=== PATIENT | male | born 1945 | race Caucasian/White ===

== ENCOUNTER 2019-11-01 09:29 | Observation (INO) | payer OTHER, MEDICARE ==
--- NOTE | 2019-11-01 10:27 | RADIOLOGY REPORT (SQ) ---
EXAM DESCRIPTION: CHEST SINGLE VIEW COMPLETED DATE/TIME: 11/01/2019 10:13 am REASON FOR STUDY: SOB COMPARISON: None. EXAM PARAMETERS: NUMBER OF VIEWS: One view. TECHNIQUE: Single frontal radiographic view of the chest acquired. RADIATION DOSE: NA LIMITATIONS: None. FINDINGS: LUNGS AND PLEURA: No opacities, masses or pneumothorax. No pleural effusion. MEDIASTINUM AND HILAR STRUCTURES: No masses. Contour normal. HEART AND VASCULAR STRUCTURES: Heart upper limits of normal in size. Normal vasculature. BONES: No acute findings. HARDWARE: Sternotomy wires and coronary markers. OTHER: No other significant finding. IMPRESSION: NO ACUTE RADIOGRAPHIC FINDING IN THE CHEST. TECHNICAL DOCUMENTATION: JOB ID: [id number] [employer]- All Rights Reserved Reading location - IP/workstation name: [email or web address]
[2019-11-01 10:48] LABS: ABSOLUTE EOSINOPHILS # (AUTO) 0.3 10^3/uL (0.0-0.6); ABSOLUTE LYMPHOCYTES (AUTO) 1.6 10^3/uL (0.5-4.7); ABSOLUTE MONOCYTES (AUTO) 0.4 10^3/uL (0.1-1.4); ABSOLUTE NEUT (AUTO) 4.2 10^3/uL (1.7-8.2); BASOPHILS % (AUTO) 0.4 % (0-2); EOSINOPHILS % (AUTO) 3.9 % (0-6); HEMATOCRIT 44.4 % (37.9-51.0); HEMOGLOBIN 15.3 g/dL (13.5-17.0); LYMPHOCYTES % (AUTO) 24.8 % (13-45); MEAN CORPUSCULAR HGB CONC 34.4 g/dL (32.0-36.0); MEAN CORPUSCULAR VOLUME 84 fl (80-97); MONOCYTES % (AUTO) 6.1 % (3-13); PLATELET COUNT 145 10^3/uL (150-450); RED BLOOD COUNT 5.27 10^6/uL (4.35-5.55); RED CELL DISTRIBUTION WIDTH 14.4 % (11.5-14.0); SEGMENTED NEUTROPHILS % (AUTO) 64.8 % (42-78); TOTAL CELLS COUNTED % (AUTO) 100 %; WHITE BLOOD COUNT 6.5 10^3/uL (4.0-10.5)
[2019-11-01 11:10] LABS: ALBUMIN 4.3 g/dL (3.5-5.0); ALKALINE PHOSPHATASE 64 U/L (38-126); ANION GAP 8 (5-19); ASPARTATE AMINO TRANSFERASE 25 U/L (17-59); BILIRUBIN,DIRECT 0.2 mg/dL (0.0-0.4); BILIRUBIN,TOTAL 0.8 mg/dL (0.2-1.3); BLOOD UREA NITROGEN 17 mg/dL (7-20); CALCIUM 9.2 mg/dL (8.4-10.2); CARBON DIOXIDE 30 mmol/L (22-30); CHLORIDE 104 mmol/L (98-107); GLUCOSE 148 mg/dL (75-110); POTASSIUM 4.9 mmol/L (3.6-5.0); TOTAL PROTEIN 7.8 g/dL (6.3-8.2)
[2019-11-01 11:13] LABS: APPEARANCE,URINE CLEAR; BILIRUBIN,URINE NEGATIVE (NEGATIVE); COLOR,URINE STRAW; GLUCOSE, URINE NEGATIVE (NEGATIVE); KETONES,URINE NEGATIVE (NEGATIVE); LEUKOCYTE ESTERASE,URINE NEGATIVE (NEGATIVE); NITRITE,URINE NEGATIVE (NEGATIVE); PROTEIN,URINE 30 mg/dL (NEGATIVE); URINE SPECIFIC GRAVITY 1.008; UROBILINOGEN,URINE NEGATIVE mg/dL (<2.0)
[2019-11-01] MEDS ORDERED: HYDRALAZINE HCL INJ/PF 20 MG/1 ML SDV IV ONE (12:48)
--- NOTE | 2019-11-01 12:49 | ER Document Report ---
ED General - General Chief Complaint: Shortness Of Breath Stated Complaint: SHORTNESS OF BREATH Time Seen by Provider: 11/01/19 12:35 Primary Care Provider: SAHARA CORDOVA MD [NO LOCAL MD] - 11/09/19 9:30 am (rubi/ Cassia CLANCY on 11/09/18 at 2 pm [address] [place] [address] ) [facility] [Primary Care Provider] - (Follow up within 1 week.) TRAVEL OUTSIDE OF THE [place] IN LAST 30 DAYS: No - HPI Notes: [place] for concern of hypertension and he has been having intermittent chest discomfort and shortness of breath with exertion. He had ope n heart surgery in January of this year. It was uneventful went very well per the patient. He is asymptomatic in the emergency department denies any chest pain or shortness of breath at this time. His says that last night he was having intermittent chest discomfort and having shortness of breath it was similar to his symptoms prior to having open heart surgery. No recent cough congestion fevers or illnesses no nausea vomiting or diarrhea - Related Data Allergies/Adverse Reactions: No Known Allergies Allergy (Unverified 11/01/19 13:05) Past Medical History - Social History Smoking Status: Never Smoker Chew tobacco use (# tins/day): No Frequency of alcohol use: None Drug Abuse: None Family History: Reviewed & Not Pertinent Patient has suicidal ideation: No Patient has homicidal ideation: No Review of Systems - Review of Systems Constitutional: No symptoms reported EENT: No symptoms reported Cardiovascular: See HPI Respiratory: See HPI Gastrointestinal: No symptoms reported Genitourinary: No symptoms reported Male Genitourinary: No symptoms reported Musculoskeletal: No symptoms reported Skin: No symptoms reported Hematologic/Lymphatic: No symptoms reported Neurological/Psychological: No symptoms reported Physical Exam - Vital signs Vitals: Pulse Ox 96 11/01/19 09:34 - General General appearance: Appears well, Alert - HEENT Head: Normocephalic, Atraumatic - Respiratory Respiratory status: No respiratory distress Chest status: Nontender Breath sounds: Normal Chest palpation: Normal - Cardiovascular Rhythm: Regular Heart sounds: Normal auscultation Murmur: No - Abdominal Inspection: Normal Distension: No distension Bowel sounds: Normal Tenderness: Nontender - Neurological Neuro grossly intact: Yes Cognition: Normal Orientation: AAOx4 - Psychological Associated symptoms: Normal affect Course - Re-evaluation Re-evalutation: 11/01/19 13:47 Patient be admitted for chest pain shortness of breath with recent CABG in March of this year. - Vital Signs Vital signs: Temp Pulse Resp BP Pulse Ox 97.6 F 22 H 181/97 H 94 11/01/19 10:02 11/01/19 10:02 11/01/19 10:02 11/01/19 10:02 - Laboratory Result Diagrams: 11/01/19 10:37 11/01/19 10:37 Laboratory results interpreted by me: 11/01/19 11/01/19 11/01/19 10:37 10:37 10:50 RDW 14.4 H Plt Count 145 L Glucose 148 H Urine Protein 30 H - EKG Interpretation by Me Additional EKG results interpreted by me: 11/01/19 13:46 Time 1003 Rate of 67, normal sinus rhythm, normal axis and intervals, nonspecific ST-T wave abnormalities no concerning ST depressions or elevations Discharge - Discharge Clinical Impression: Dyspnea on exertion Chest pain Qualifiers: Chest pain type: unspecified Qualified Code(s): R07.9 - Chest pain, unspecified Hypertension Qualifiers: Hypertension type: unspecified Qualified Code(s): I10 - Essential (primary) hypertension Condition: Stable Disposition: ADMITTED OBSERVATION Admitting Provider: Maryse (Hospitalist) Unit Admitted: Telemetry Prescriptions: Buspirone HCl [Buspar 5 mg Tablet] 1 tab PO BID #60 tab Hydroxyzine Pamoate [Vistaril 25 mg Capsule] 25 mg PO BIDP PRN #20 capsule PRN Reason: stress/anxiety Referrals: SAHARA CORDOVA MD [NO LOCAL MD] - 11/09/19 9:30 am (franko CLANCY on 11/09/18 at 2 pm [address] [place] [address] ) [facility] [Primary Care Provider] - (Follow up within 1 week.)
--- NOTE | 2019-11-01 13:26 | EKG REPORT ---
SEVERITY:- BORDERLINE ECG - SINUS RHYTHM BORDERLINE R WAVE PROGRESSION, ANTERIOR LEADS BORDERLINE T ABNORMALITIES, ANT-LAT LEADS : Confirmed by: Sunil Comer MD 01-Nov-2019 13:25:22
[2019-11-01] MEDS ORDERED: NITROGLYCERIN 2% OINTMENT 1 GM PACKET TP ONE (13:48)
[2019-11-01] MEDS ORDERED: METOPROLOL SUCCINATE 25 MG TAB.SR.24H PO ONE (16:00)
[2019-11-01] MEDS ORDERED: LISINOPRIL 10 MG TABLET PO ONE (16:00)
[2019-11-01] MEDS ORDERED: ACETAMINOPHEN 325 MG TABLET PO PRN (16:58)
[2019-11-01] MEDS ORDERED: ONDANSETRON HCL INJ/PF 4 MG/2 ML SDV IV PRN (16:58)
[2019-11-01] MEDS ORDERED: MAG HYDROX/AL HYDROX/SIMETH SUSP 30 ML UDCUP PO PRN (16:58)
[2019-11-01] MEDS ORDERED: ALBUTEROL SULFATE 0.083% NEB 2.5 MG/3 ML AMPUL NEB PRN (16:58)
[2019-11-01] MEDS ORDERED: HYDRALAZINE HCL INJ/PF 20 MG/1 ML SDV IV PRN ×2 (17:00→20:20)
[2019-11-01] MEDS ORDERED: DEXTROSE 40% GEL 15 GM TUBE PO PRN ×2 (17:37)
[2019-11-01] MEDS ORDERED: DEXTROSE 50%-WATER 25 GM/50 ML DISP.SYRIN IV PRN ×2 (17:37)
[2019-11-01] MEDS ORDERED: GLUCAGON,HUMAN RECOMB 1 MG INJ IM PRN (17:37)
--- NOTE | 2019-11-01 17:48 | PDOC H&P ---
History of Present Illness Admission Date/PCP: 11/01/19 17:30 [place] [facility] Patient complains of: uncontrolled blood pressure, chest pain History of Present Illness: PARIS JARAMILLO is a 74 year old male with a past medical history significant for insulin-dependent diabetes mellitus, hypertension, hyperlipidemia, hypothyroidism, and recent triple bypass by Dr. Leon ([facility]) in March 2019. Patient was sent to the ED from the [place] clinic today for hypertensive urgency with associated chest discomfort. Patient reports intermittent chest tightness over the last 3 days. He does describe increased social stressors and believes that his chest discomfort has been related to stress/anxiety. Today he reports that he left the home early and forgot to take his blood pressure medications which resulted in his high blood pressure. 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 His second troponin did come back negative, however, despite resuming his home medication regiment and providing IV hydralazine, he continued to have blood pressures 194/107 and so will be admitted for hypertensive urgency. Further evaluation in the emergency department revealed normal CBC, unremarkable chemistry, urinalysis, and chest x-ray. EKG demonstrates sinus rhythm with borderline T wave abnormalities to the anterior and lateral leads but no acute findings. Past Medical History Cardiac Medical History: Reports: Coronary Artery Disease, Hyperlipidema, Hypertension Denies: Atrial Fibrillation, Congestive Heart Failure Pulmonary Medical History: Reports: None EENT Medical History: Reports: None Neurological Medical History: Reports: None Endocrine Medical History: Reports: Diabetes Mellitus Type 2 - IDDM, Hypothyroidism Renal/ Medical History: Reports: None Malignancy Medical History: Reports: None GI Medical History: Reports: None Musculoskeltal Medical History: Reports: None Skin Medical History: Reports: None Psychiatric Medical History: Reports: None Traumatic Medical History: Reports: None Hematology: Reports: None Infectious Medical History: Reports: None Past Surgical History Past Surgical History: Reports: Coronary Artery Bypass Graft Social History Information Source: Patient Lives with: Family Smoking Status: Never Smoker Electronic Cigarette use?: No Frequency of Alcohol Use: None Hx Recreational Drug Use: No Hx Prescription Drug Abuse: No - Advance Directive Resuscitation Status: Do Not Resuscitate Family History Family History: Reviewed & Not Pertinent Parental Family History Reviewed: Yes Children Family History Reviewed: Yes Sibling(s) Family History Reviewed.: Yes Medication/Allergy Home Medications: Buspirone HCl [Buspar 5 mg Tablet] 1 tab PO BID #60 tab 11/01/19 Hydroxyzine Pamoate [Vistaril 25 mg Capsule] 25 mg PO BIDP PRN #20 capsule 11/01/19 Allergies/Adverse Reactions: No Known Allergies Allergy (Unverified 11/01/19 13:05) Review of Systems Constitutional: ABSENT: chills, fever(s), headache(s), weight gain, weight loss Eyes: ABSENT: visual disturbances Ears: ABSENT: hearing changes Cardiovascular: PRESENT: as per HPI, chest pain. ABSENT: dyspnea on exertion, edema, orthropnea, palpitations Respiratory: ABSENT: cough, hemoptysis Gastrointestinal: ABSENT: abdominal pain, constipation, diarrhea, hematemesis, hematochezia, nausea, vomiting Genitourinary: ABSENT: dysuria, hematuria Musculoskeletal: ABSENT: joint swelling Integumentary: ABSENT: rash, wounds Neurological: ABSENT: abnormal gait, abnormal speech, confusion, dizziness, focal weakness, syncope Psychiatric: PRESENT: as per HPI, anxiety. ABSENT: depression, homidical ideation, suicidal ideation Endocrine: ABSENT: cold intolerance, heat intolerance, polydipsia, polyuria Hematologic/Lymphatic: ABSENT: easy bleeding, easy bruising Physical Exam Vital Signs: Temp Pulse Resp BP Pulse Ox 97.6 F 27 H 194/107 H 95 11/01/19 10:02 11/01/19 16:38 11/01/19 16:38 11/01/19 16:38 Intake & Output 10/31/19 11/01/19 11/02/19 06:59 06:59 06:59 Weight 112.491 kg General appearance: PRESENT: no acute distress, cooperative, well-developed, well-nourished Head exam: PRESENT: atraumatic, normocephalic Eye exam: PRESENT: conjunctiva pink, EOMI, PERRLA. ABSENT: scleral icterus Ear exam: PRESENT: normal external ear exam Mouth exam: PRESENT: moist, tongue midline Neck exam: ABSENT: carotid bruit, JVD, lymphadenopathy, thyromegaly Respiratory exam: PRESENT: clear to auscultation rios, symmetrical, unlabored. ABSENT: rales, rhonchi, wheezes Cardiovascular exam: PRESENT: RRR, +S1, +S2. ABSENT: diastolic murmur, rubs, systolic murmur Pulses: PRESENT: normal dorsalis pedis pul Vascular exam: PRESENT: normal capillary refill GI/Abdominal exam: PRESENT: normal bowel sounds, soft. ABSENT: distended, guarding, mass, organolmegaly, rebound, tenderness Rectal exam: PRESENT: deferred Extremities exam: PRESENT: full ROM. ABSENT: calf tenderness, clubbing, pedal edema Musculoskeletal exam: PRESENT: ambulatory Neurological exam: PRESENT: alert, awake, oriented to person, oriented to place, oriented to time, oriented to situation, CN II-XII grossly intact. ABSENT: motor sensory deficit Psychiatric exam: PRESENT: appropriate affect, normal mood. ABSENT: homicidal ideation, suicidal ideation Skin exam: PRESENT: dry, intact, warm. ABSENT: cyanosis, rash Results Laboratory Results: 11/01/19 10:37 11/01/19 10:37 11/01/19 11/01/19 11/01/19 10:37 10:37 10:37 WBC 6.5 RBC 5.27 Hgb 15.3 Hct 44.4 MCV 84 MCH 29.0 MCHC 34.4 RDW 14.4 H Plt Count 145 L Seg Neutrophils % 64.8 Sodium 142.1 Potassium 4.9 Chloride 104 Carbon Dioxide 30 Anion Gap 8 BUN 17 Creatinine 0.75 Est GFR ( Amer) > 60 Glucose 148 H Calcium 9.2 Magnesium 2.1 Total Bilirubin 0.8 AST 25 Alkaline Phosphatase 64 Total Protein 7.8 Albumin 4.3 Urine Color Urine Appearance Urine pH Ur Specific [place] Urine Protein Urine Glucose (UA) Urine Ketones Urine Blood Urine Nitrite Ur Leukocyte Esterase Urine WBC (Auto) Urine RBC (Auto) 11/01/19 10:50 WBC RBC Hgb Hct MCV MCH MCHC RDW Plt Count Seg Neutrophils % Sodium Potassium Chloride Carbon Dioxide Anion Gap BUN Creatinine Est GFR ( Amer) Glucose Calcium Magnesium Total Bilirubin AST Alkaline Phosphatase Total Protein Albumin Urine Color STRAW Urine Appearance CLEAR Urine pH 7.0 Ur Specific [place] 1.008 Urine Protein 30 H Urine Glucose (UA) NEGATIVE Urine Ketones NEGATIVE Urine Blood NEGATIVE Urine Nitrite NEGATIVE Ur Leukocyte Esterase NEGATIVE Urine WBC (Auto) 0 Urine RBC (Auto) 0 11/01/19 11/01/19 10:37 15:45 Troponin I < 0.012 0.016 Impressions: Chest X-Ray 11/01/19 09:45 IMPRESSION: NO ACUTE RADIOGRAPHIC FINDING IN THE CHEST. Assessment and Plan - Diagnosis (1) Chest pain Qualifiers: Chest pain type: unspecified Qualified Code(s): R07.9 - Chest pain, unspecified Is this a current diagnosis for this admission?: Yes Plan: Unclear etiology. Patient reports that his pain seems to be associated with increased life stressors. He reports that his blood pressure was elevated today because he take his medications prior to leaving the house. However, he does have multiple risk factors including age, weight, hypertension, hyperlipidemia, recent CABG. The EKG demonstrated nonspecific T wave changes to the anterior and lateral leads but no acute findings. Troponin 0.012-> 0.016; will continue to trend Patient is admitted to the medical floor on continuous cardiac telemetry. Continue to trend troponins. Daily aspirin therapy. Resume home dose statin once reconciled. Cardiology consultation. Achieve adequate blood pressure control. (2) Hypertensive urgency Is this a current diagnosis for this admission?: Yes Plan: Patient is placed on cardiac diet. Resume home medication regiment once reconciled; did receive lisinopril 20 mg and metoprolol XL 25 mg today while still in the ED. IV hydralazine as needed for blood pressure control. (3) Hyperlipidemia Is this a current diagnosis for this admission?: Yes Plan: Cardiac diet. Continue home dose statin once medications have been reconciled. (4) Diabetes Qualifiers: Diabetes mellitus type: type 2 Diabetes mellitus skilled nursing insulin use: with skilled nursing use Is this a current diagnosis for this admission?: Yes Plan: We will check A1c with a.m. lab work. Hold oral diabetic medications. Consistent carb diet. Accu-Chek before meals at bedtime with Humalog for sliding scale coverage. Hypoglycemia protocol. - Time Time Spent with patient: 35 or more minutes Medications reviewed and adjusted accordingly: Yes Anticipated discharge: Home Within: within 24 hours
[2019-11-01] MEDS ORDERED: METOPROLOL TARTRATE PF/INJ 5 MG/5 ML SDV IV PRN (20:18)
[2019-11-01] MEDS: NITROGLYCERIN 2% OINTMENT 1 GM PACKET TP SCH (20:46)
[2019-11-01] MEDS ORDERED: METOPROLOL SUCCINATE 50 MG TAB.SR.24H PO SCH (22:00)
[2019-11-02] MEDS: FAMOTIDINE 20 MG TABLET PO SCH ×2 (00:28→09:27)
[2019-11-02] MEDS: METOPROLOL SUCCINATE 50 MG TAB.SR.24H PO SCH ×2 (00:28→09:25)
[2019-11-02] MEDS: HEPARIN SOD (PORCINE) 5,000 UNIT/ML 1 ML VIAL SUBCUT SCH ×3 (00:29→14:07)
[2019-11-02] MEDS: INSULIN LISPRO 100 UNIT/ML 3 ML VIAL SUBCUT SCH ×3 (00:30→12:36)
[2019-11-02] MEDS: NITROGLYCERIN 2% OINTMENT 1 GM PACKET TP SCH ×3 (00:31→12:43)
[2019-11-02 06:33] LABS: HEMATOCRIT 44.2 % (37.9-51.0); HEMOGLOBIN 15.2 g/dL (13.5-17.0); MEAN CORPUSCULAR HEMOGLOBIN 28.7 pg (27.0-33.4); MEAN CORPUSCULAR HGB CONC 34.3 g/dL (32.0-36.0); MEAN CORPUSCULAR VOLUME 84 fl (80-97); PLATELET COUNT 160 10^3/uL (150-450); RED BLOOD COUNT 5.29 10^6/uL (4.35-5.55); RED CELL DISTRIBUTION WIDTH 14.7 % (11.5-14.0); WHITE BLOOD COUNT 7.8 10^3/uL (4.0-10.5)
[2019-11-02 06:58] LABS: ANION GAP 10 (5-19); BLOOD UREA NITROGEN 17 mg/dL (7-20); CALCIUM 9.3 mg/dL (8.4-10.2); CARBON DIOXIDE 25 mmol/L (22-30); CHLORIDE 105 mmol/L (98-107); GLUCOSE 156 mg/dL (75-110); POTASSIUM 4.2 mmol/L (3.6-5.0)
[2019-11-02] MEDS ORDERED: LISINOPRIL 10 MG TABLET PO SCH (10:00)
[2019-11-02] MEDS ORDERED: DOCUSATE SODIUM 100 MG CAPSULE PO SCH (10:00)
[2019-11-02] MEDS ORDERED: ASPIRIN 81 MG TABLET, CHEWABLE PO SCH (10:00)
[2019-11-02] MEDS ORDERED: (PENDING PHARMACY ID) (Lisinopril [Prinivil] 20 MG) PO SCH (10:00)
[2019-11-02] MEDS ORDERED: LISINOPRIL 10 MG TABLET PO ONE (11:00)
--- NOTE | 2019-11-02 13:58 | PDOC CONSULTATION ---
Consultation Consult Date: 11/02/19 Provider Consulted: LONG FERNANDES History of Present Illness Admission Date/PCP: 11/01/19 17:30 [place] [facility] Patient complains of: Elevated blood pressure History of Present Illness: PARIS JARAMILLO is a 74 year old male With the following active problems 1. Coronary disease 2. Systemic hypertension 3. Coronary artery bypass graft March 2019 Patient initially presented to the [facility] with concerns that his heart rhythm was abnormal. To me he denies any episodes of chest pain whatsoever. His cardiac biomarkers do not support ongoing myocardial ischemia. His blood pressures since admission have been elevated and we will trying to get his blood pressure under control. At the time of my evaluation patient denies any chest pain dyspnea or palpitations. He is on regular follow-up with his residential program director and has an upcoming appointment on 09 November 2019 Past Medical History Cardiac Medical History: Reports: Coronary Artery Disease, Hyperlipidema, Hypertension Denies: Atrial Fibrillation, Congestive Heart Failure Pulmonary Medical History: Reports: None EENT Medical History: Reports: None Neurological Medical History: Reports: None Endocrine Medical History: Reports: Diabetes Mellitus Type 2 - IDDM, Hy pothyroidism Renal/ Medical History: Reports: None Malignancy Medical History: Reports: None GI Medical History: Reports: None Musculoskeltal Medical History: Reports: None Skin Medical History: Reports: None Psychiatric Medical History: Reports: None Traumatic Medical History: Reports: None Hematology: Reports: None Infectious Medical History: Reports: None Past Surgical History Past Surgical History: Reports: Coronary Artery Bypass Graft Social History Lives with: Family Smoking Status: Never Smoker Electronic Cigarette use?: No Frequency of Alcohol Use: None Hx Recreational Drug Use: No Hx Prescription Drug Abuse: No - Advance Directive Resuscitation Status: Do Not Resuscitate Family History Family History: Reviewed & Not Pertinent Parental Family History Reviewed: No Children Family History Reviewed: NA Sibling(s) Family History Reviewed.: NA Medication/Allergy Home Medications: Glipizide [Glocotrol 10 Mg Tablet] 10 mg PO BID 11/01/19 Levothyroxine Sodium [Synthroid 0.025 mg Tablet] 0.025 mg PO Q6AM 11/01/19 Lisinopril [Prinivil] 20 mg PO DAILY 11/01/19 Metoprolol Tartrate [Lopressor 50 mg Tablet] 50 mg PO DAILY 11/01/19 Rosuvastatin Calcium [Crestor 20 mg Tablet] 20 mg PO DAILY 11/01/19 Allergies/Adverse Reactions: No Known Allergies Allergy (Unverified 11/01/19 13:05) Physical Exam Vital Signs: Temp Pulse Resp BP Pulse Ox 97.6 F 77 16 199/104 H 97 11/02/19 12:00 11/02/19 12:47 11/02/19 12:00 11/02/19 12:47 11/02/19 12:00 Intake & Output 11/01/19 11/02/19 11/03/19 06:59 06:59 06:59 Intake Total 360 Balance 360 Weight 112 kg General appearance: PRESENT: cooperative, obese Head exam: PRESENT: atraumatic, normocephalic Eye exam: PRESENT: conjunctiva pink, EOMI Mouth exam: PRESENT: moist Respiratory exam: PRESENT: unlabored Cardiovascular exam: PRESENT: RRR, +S1, +S2, other - Well-healed sternotomy incision Pulses: PRESENT: normal radial pulses - Absent left radial pulse. Left radial artery has been harvested for CABG Vascular exam: PRESENT: normal capillary refill Rectal exam: PRESENT: deferred Neurological exam: PRESENT: alert, oriented to person, oriented to place, oriented to time, oriented to situation Skin exam: PRESENT: dry, intact Results Laboratory Results: 11/02/19 05:45 11/02/19 05:45 11/02/19 11/02/19 11/02/19 05:45 05:45 05:45 WBC 7.8 RBC 5.29 Hgb 15.2 Hct 44.2 MCV 84 MCH 28.7 MCHC 34.3 RDW 14.7 H Plt Count 160 Sodium 140.4 Potassium 4.2 Chloride 105 Carbon Dioxide 25 Anion Gap 10 BUN 17 Creatinine 0.77 Est GFR ( Amer) > 60 Glucose 156 H Calcium 9.3 TSH 8.09 H 11/01/19 11/01/19 11/01/19 10:37 15:45 17:59 Troponin I < 0.012 0.016 0.016 EKG Comments: Twelve-lead EKG 11/01/2019 Sinus rhythm 67 bpm. Poor R wave progression precordial leads. Normal AV conduction, borderline T wave changes in the anterior and lateral leads. QTC is 452 ms Impressions: Chest X-Ray 11/01/19 09:45 IMPRESSION: NO ACUTE RADIOGRAPHIC FINDING IN THE CHEST. Assessment & Plan - Diagnosis (1) Hypertension Qualifiers: Hypertension type: unspecified Qualified Code(s): I10 - Essential (primary) hypertension Is this a current diagnosis for this admission?: Yes Plan: No added salt in the diet Continue amlodipine 10 mg daily Continue lisinopril 10 mg daily Continue metoprolol succinate 100 mg daily For added effect hydralazine can be used as an additional oral agent. (2) S/P CABG (coronary artery bypass graft) Plan: No ischemic symptoms Continue aspirin 81 mg daily Continue beta-levi Continue follow-up with residential program director No chest pain reported to me and cardiac biomarkers are negative at this time - Notes Notes: Watch blood pressure He may need further titration of his blood pressure regimen. Avoid added salt in the diet.
[2019-11-02] MEDS ORDERED: AMLODIPINE BESYLATE 10 MG TABLET PO SCH (14:00)
[2019-11-02 15:51] VITALS: BP 182/97
--- NOTE | 2019-11-02 19:16 | PDOC DISCHARGE SUMMARY ---
Impression - Admit/DC Date/PCP Admission Date/Primary Care Provider: 11/01/19 17:30 [facility] Discharge Date: 11/02/19 - Discharge Diagnosis (1) Chest pain Is this a current diagnosis for this admission?: Yes (2) Hypertensive urgency Is this a current diagnosis for this admission?: Yes (3) Hyperlipidemia Is this a current diagnosis for this admission?: Yes (4) Diabetes Is this a current diagnosis for this admission?: Yes - Additional Information Resuscitation Status: Do Not Resuscitate Discharge Diet: Cardiac Discharge Activity: Activity As Tolerated, Balance Activity w/Rest Referrals: SAHARA CORDOVA MD [NO LOCAL MD] - 11/09/19 2:00 pm (w/ Cassia CLANCY on 11/09/18 at 2 pm [address] [place] [address] ) Prescriptions: Amlodipine Besylate [Norvasc 10 mg Tablet] 10 mg PO DAILY #30 tablet Lisinopril [Prinivil] 40 mg PO DAILY #60 Metoprolol Succinate [Toprol XL 100 mg Tablet] 100 mg PO BID #60 tab.sr.24h Home Medications: Glipizide [Glucotrol 10 mg Tablet] 10 mg PO BID 11/01/19 Levothyroxine Sodium [Synthroid 0.025 mg Tablet] 0.025 mg PO Q6AM 11/01/19 Rosuvastatin Calcium [Crestor 20 mg Tablet] 20 mg PO DAILY 11/01/19 Acetaminophen [Tylenol 325 mg Tablet] 650 mg PO Q4HP PRN tablet 11/02/19 Amlodipine Besylate [Norvasc 10 mg Tablet] 10 mg PO DAILY #30 tablet 11/02/19 Aspirin [Aspirin 81 mg Chewable Tablet] 81 mg PO DAILY tab.chew 11/02/19 Lisinopril [Prinivil] 40 mg PO DAILY #60 11/02/19 Metoprolol Succinate [Toprol XL 100 mg Tablet] 100 mg PO BID #60 tab.sr.24h 1 History of Present Illiness History of Present Illness: PARIS JARAMILLO is a 74 year old male with a past medical history significant for insulin-dependent diabetes mellitus, hypertension, hyperlipidemia, hypothyroidism, and recent triple bypass by Dr. Cordova ([facility]) in March 2019. Patient was sent to the ED from the [place] [facility] today for hypertensive urgency with associated chest discomfort. Patient reports intermittent chest tightness over the last 3 days. He does describe increased social stressors and believes that his chest discomfort has been related to stress/anxiety. Today he reports that he left the home early and forgot to take his blood pressure medications which resulted in his high blood pressure. Initially he requested to be discharged to home with outpatient follow-up with his established fitter welder. His second troponin did come back negative, however, despite resuming his home medication regiment and providing IV hydralazine, he continued to have blood pressures 194/107 and so will be admitted for hypertensive urgency. Further evaluation in the emergency department revealed normal CBC, unremarkable chemistry, urinalysis, and chest x-ray. EKG demonstrates sinus rhythm with borderline T wave abnormalities to the anterior and lateral leads but no acute findings. Hospital Course Hospital Course: The patient was admitted to the medical floor and monitored on continuous cardiac telemetry; no abnormal rhythms noted. Troponins are negative x 3. No further episodes of chest discomfort reported. Patient was evaluated by cardiology services. Per Dr. Rogers; continue medications for appropriate blood pressure control including beta-levi, daily aspirin therapy, and follow-up with established fitter welder as previously scheduled. Patient's home blood pressure medications were adjusted. His Toprol XL is increased to 100 mg twice daily, lisinopril increased to 40 mg daily, and amlodipine 10 mg daily has been added. I do believe that the patient has a component of stress/anxiety (whitecoat) as he was noted to have increased anxiety/fidgetiness when I was in the room while vital signs were being obtained. Therefore, his blood pressures may be artificially elevated; recommend that he continue to check blood pressures once daily at home and keep a log to present to his primary care provider. The patient is discharged home in stable condition. He is noted to have blood pressure of 182/97 at time of discharge, although, this is improved from previous blood pressures. And again, I believe that there may have been a component of whitecoat syndrome artificially inflating his blood pressure as he became acutely anxious when I walked in the room. Follow-up with his primary care provider. He is instructed to keep his follow-up appointment scheduled November 09, 2019 with his established fitter welder. He is instructed to continue with mentioned metoprolol, lisinopril, and amlodipine until that time. He is encouraged to take his blood pressures at home once daily and keep a log to present to his providers at his follow-up appointment. Advised of the importance of a low-sodium diet. He is further instructed to return to the emergency department as needed for any concerning symptoms. Physical Exam Vital Signs: Temp Pulse Resp BP Pulse Ox 98.6 F 73 16 182/97 H 97 11/02/19 16:00 11/02/19 16:00 11/02/19 16:00 11/02/19 16:00 11/02/19 16:00 Intake & Output 11/01/19 11/02/19 11/03/19 06:59 06:59 06:59 Intake Total 360 1240 Balance 360 1240 Weight 112 kg General appearance: PRESENT: no acute distress, cooperative, well-developed, well-nourished - overweight Head exam: PRESENT: atraumatic, normocephalic Eye exam: PRESENT: conjunctiva pink, EOMI, PERRLA. ABSENT: scleral icterus Ear exam: PRESENT: normal external ear exam Mouth exam: PRESENT: moist, tongue midline Respiratory exam: PRESENT: clear to auscultation rios, symmetrical, unlabored. ABSENT: rales, rhonchi, wheezes Cardiovascular exam: PRESENT: RRR, +S1, +S2. ABSENT: diastolic murmur, rubs, systolic murmur Pulses: PRESENT: normal dorsalis pedis pul Vascular exam: PRESENT: normal capillary refill GI/Abdominal exam: PRESENT: normal bowel sounds, soft. ABSENT: distended, guarding, mass, organolmegaly, rebound, tenderness Rectal exam: PRESENT: deferred Extremities exam: PRESENT: full ROM. ABSENT: calf tenderness, clubbing, pedal edema Musculoskeletal exam: PRESENT: ambulatory Neurological exam: PRESENT: alert, awake, oriented to person, oriented to place, oriented to time, oriented to situation, CN II-XII grossly intact. ABSENT: motor sensory deficit Psychiatric exam: PRESENT: anxious, appropriate affect. ABSENT: homicidal ideation, suicidal ideation Skin exam: PRESENT: dry, intact, warm. ABSENT: cyanosis, rash Results Laboratory Results: WBC 7.8 10^3/uL (4.0-10.5) 11/02/19 05:45 RBC 5.29 10^6/uL (4.35-5.55) 11/02/19 05:45 Hgb 15.2 g/dL (13.5-17.0) 11/02/19 05:45 Hct 44.2 % (37.9-51.0) 11/02/19 05:45 MCV 84 fl (80-97) 11/02/19 05:45 MCH 28.7 pg (27.0-33.4) 11/02/19 05:45 MCHC 34.3 g/dL (32.0-36.0) 11/02/19 05:45 RDW 14.7 % (11.5-14.0) H 11/02/19 05:45 Plt Count 160 10^3/uL (150-450) 11/02/19 05:45 Lymph % (Auto) 24.8 % (13-45) 11/01/19 10:37 Bowie % (Auto) 6.1 % (3-13) 11/01/19 10:37 Eos % (Auto) 3.9 % (0-6) 11/01/19 10:37 Baso % (Auto) 0.4 % (0-2) 11/01/19 10:37 Absolute Neuts (auto) 4.2 10^3/uL (1.7-8.2) 11/01/19 10:37 Absolute Lymphs (auto) 1.6 10^3/uL (0.5-4.7) 11/01/19 10:37 Absolute Monos (auto) 0.4 10^3/uL (0.1-1.4) 11/01/19 10:37 Absolute Eos (auto) 0.3 10^3/uL (0.0-0.6) 11/01/19 10:37 Absolute Basos (auto) 0.0 10^3/uL (0.0-0.2) 11/01/19 10:37 Seg Neutrophils % 64.8 % (42-78) 11/01/19 10:37 Sodium 140.4 mmol/L (137-145) 11/02/19 05:45 Potassium 4.2 mmol/L (3.6-5.0) 11/02/19 05:45 Chloride 105 mmol/L (98-107) 11/02/19 05:45 Carbon Dioxide 25 mmol/L (22-30) 11/02/19 05:45 Anion Gap 10 (5-19) 11/02/19 05:45 BUN 17 mg/dL (7-20) 11/02/19 05:45 Creatinine 0.77 mg/dL (0.52-1.25) 11/02/19 05:45 Est GFR ( Amer) > 60 (>60) 11/02/19 05:45 Est GFR (MDRD) Non-Af > 60 (>60) 11/02/19 05:45 Glucose 156 mg/dL (75-110) H 11/02/19 05:45 POC Glucose 119 mg/dL (70-110) H 11/02/19 12:35 Hemoglobin A1c % 6.9 % (4.7-6.0) H 11/02/19 05:45 Calcium 9.3 mg/dL (8.4-10.2) 11/02/19 05:45 Magnesium 2.1 mg/dL (1.6-2.3) 11/01/19 10:37 Total Bilirubin 0.8 mg/dL (0.2-1.3) 11/01/19 10:37 Direct Bilirubin 0.2 mg/dL (0.0-0.4) 11/01/19 10:37 Neonat Total Bilirubin Not Reportable 11/01/19 10:37 Neonat Direct Bilirubin Not Reportable 11/01/19 10:37 Neonat Indirect Bili Not Reportable 11/01/19 10:37 AST 25 U/L (17-59) 11/01/19 10:37 ALT 20 U/L (<50) 11/01/19 10:37 Alkaline Phosphatase 64 U/L (38-126) 11/01/19 10:37 Troponin I 0.016 ng/mL 11/01/19 17:59 Total Protein 7.8 g/dL (6.3-8.2) 11/01/19 10:37 Albumin 4.3 g/dL (3.5-5.0) 11/01/19 10:37 TSH 8.09 uIU/mL (0.47-4.68) H 11/02/19 05:45 Urine Color STRAW 11/01/19 10:50 Urine Appearance CLEAR 11/01/19 10:50 Urine pH 7.0 (5.0-9.0) 11/01/19 10:50 Ur Specific [place] 1.008 11/01/19 10:50 Urine Protein 30 mg/dL (NEGATIVE) H 11/01/19 10:50 Urine Glucose (UA) NEGATIVE mg/dL (NEGATIVE) 11/01/19 10:50 Urine Ketones NEGATIVE mg/dL (NEGATIVE) 11/01/19 10:50 Urine Blood NEGATIVE (NEGATIVE) 11/01/19 10:50 Urine Nitrite NEGATIVE (NEGATIVE) 11/01/19 10:50 Urine Bilirubin NEGATIVE (NEGATIVE) 11/01/19 10:50 Urine Urobilinogen NEGATIVE mg/dL (<2.0) 11/01/19 10:50 Ur Leukocyte Esterase NEGATIVE (NEGATIVE) 11/01/19 10:50 Urine WBC (Auto) 0 /HPF 11/01/19 10:50 Urine RBC (Auto) 0 /HPF 11/01/19 10:50 Urine Mucus (Auto) RARE /LPF 11/01/19 10:50 Urine Ascorbic Acid NEGATIVE (NEGATIVE) 11/01/19 10:50 11/01/19 11/01/19 11/01/19 10:37 15:45 17:59 Troponin I < 0.012 0.016 0.016 Impressions: Chest X-Ray 11/01/19 09:45 IMPRESSION: NO ACUTE RADIOGRAPHIC FINDING IN THE CHEST. Plan Plan of Treatment: Patient is discharged home in stable condition. He is advised to follow up with his PCP within 1 week. Keep his scheduled appointment with his established fitter welder for 11/09/19. Take medications as prescribed. Eat a low sodium diet. Reduce caffeine and stress. Return to the emergency department as needed for concerning symptoms. Time Spent: Greater than 30 Minutes Stroke Is this a Stroke Patient?: No Acute Heart Failure - Is this a Heart Failure Patient?: No
[2019-11-03] MEDS ORDERED: LEVOTHYROXINE SODIUM 0.025 MG TABLET PO SCH (06:00)
[2019-11-03] MEDS ORDERED: AMLODIPINE BESYLATE 10 MG TABLET PO SCH (13:10)
== END 2019-11-02 16:40 | disposition home or self-care (01) ==
LOC: EDSEX 09:29 → ER 09:29 → EH 17:30 → 5 22:01
PROVIDERS: ADMIT Internal Medicine; ATTEND Internal Medicine
DX: R07.89 Other chest pain (principal); I16.0 Hypertensive urgency; E78.5 Hyperlipidemia, unspecified; E11.9 Type 2 diabetes mellitus without complications; E03.9 Hypothyroidism, unspecified; R94.31 Abnormal electrocardiogram [ECG] [EKG]; F41.9 Anxiety disorder, unspecified; I25.10 Atherosclerotic heart disease of native coronary artery without angina pectoris; E66.9 Obesity, unspecified; Z66 Do not resuscitate; Z79.899 Other long term (current) drug therapy; Z79.82 Long term (current) use of aspirin; Z95.1 Presence of aortocoronary bypass graft; Z79.4 Long term (current) use of insulin; Z73.3 Stress, not elsewhere classified; Z60.9 Problem related to social environment, unspecified
CPT/HCPCS: 93005; 96376; 99285; 96374; 36415 ×2; 82962; 83735; 84443; 85025; 85027; 80048; 80053; 81001; 84484; 83036; 71045; 93010; G0378 ×3; J1644; J0360; J3490 ×2